=== PATIENT | female | born 1950 | race Caucasian/White ===

== ENCOUNTER 2019-10-05 04:41 | Emergency (ER) | payer MEDICARE, MEDICAID, SELFPAY ==
[2019-10-05 05:11] VITALS: BP 136/74; PULSE 77; RESP 16; O2SAT 96; BMI 34.7
--- NOTE | 2019-10-05 05:26 | CTR_ITS ---
PROCEDURE INFORMATION: Exam: CT Head Without Contrast Exam date and time: 10/05/2019 5:27 AM Age: 68 years old Clinical indication: Injury or trauma; Fall; Initial encounter; Blunt trauma (contusions or hematomas); Without loss of consciousness; Additional info: Fall/injury/headache TECHNIQUE: Imaging protocol: Computed tomography of the head without contrast. Radiation optimization: All CT scans at this facility use at least one of these dose optimization techniques: automated exposure control; mA and/or kV adjustment per patient size (includes targeted exams where dose is matched to clinical indication); or iterative reconstruction. COMPARISON: No relevant prior studies available. RADIATION DOSE METRICS: Total DLP (mGy-cm): 853.02 FINDINGS: Brain: There are no areas of abnormally increased or decreased brain parenchymal attenuation. No abnormal intra-axial or extra-axial fluid collections are identified. There is no midline shift. No intracranial hemorrhage identified. Ventricles: The ventricular system is within normal limits for size and configuration. Bones/joints: Unremarkable as visualized. Sinuses: Visualized sinuses are unremarkable. No fluid levels. Mastoid air cells: Visualized mastoid air cells are well aerated. Soft tissues: Unremarkable. CT/CT head wo con* [id number] IMPRESSION: 1. No acute intracranial abnormality identified. Radiation Dose CTDIVOL = (mGy): DLP = 853.02 (mGy-cm)
[2019-10-05 05:36] VITALS: BP 138/86; PULSE 76; RESP 16; O2SAT 95
[2019-10-05] MEDS: ondansetron 4 MG Tablet PO (05:37)
[2019-10-05] MEDS: acetaminophen 500 mg Tablet 1000 MG PO (05:38)
--- NOTE | 2019-10-05 05:48 | ED_ITS ---
Documented by User: Stacey Eden 10/05/19 05:53 HPI - Head Injury General: Chief complaint: Head Injury Stated complaint: fall/hit head Time Seen by Provider: 10/05/19 05:20 Source: patient Mode of arrival: ambulatory Limitations: no limitations History of Present Illness: HPI Narrative: Ms. Hopper is a nice 68-year-old female who comes in with a complaint of hitting her head after rolling out of bed. She was dazed but not knocked unconscious. She felt herself fall as she woke up and rolled over and realize she fell off the bed. She denies any pain to her neck, chest or other areas of her body. She is been nauseated since then and has a headache. Associated symptoms: Reports nausea; Deny confusion, neck pain, syncope, vertigo or vomiting Review of Systems Const: Denies: fever(s), chills, body aches, fatigue, malaise or diaphoresis Eyes: Denies: change in vision, blurry vision, blind spots, photophobia, eye discharge or eye redness ENMT: Denies: throat pain, odynophagia, hoarseness, swelling of lips/tongue, oral sores, ear or mastoid pain, ear discharge, change in hearing or nasal discharge Card: Denies: chest pain, palpitations, irregular heart rhythm, edema, lightheadedness, syncope, pre-syncope, dyspnea on exertion or orthopnea Resp: Denies: dyspnea, productive cough, non-productive cough, wheezing, hemoptysis or chest congestion GI: Reports: nausea; Denies: abdominal pain, vomiting, hematemesis, coffee ground emesis, heartburn, diarrhea, constipation, GI cramping, hematochezia or melena : Denies: flank pain, dysuria, urinary frequency, urinary urgency or hematuria Musc: Denies: neck pain, back pain, extremity pain, extremity swelling, joint pain, joint swelling, joint redness, joint warmth or joint stiffness Skin/Breast: Denies: rash, pruritus, erythema, skin tenderness or jaundice Neuro: Reports: headache(s); Denies: numbness in extremities, weakness in extremities, sensory changes, lack of coordination, difficulty walking, dizziness, vertigo, confusion, Slurred speech present or seizure-like activity Talib/Lymph: Denies: easy bruising, easy bleeding, petechiae, purpura or enlarged lymph nodes All/Imm: Denies: urticaria, throat swelling, tongue swelling, facial swelling or acute wheezing PFSH ED PFSH: Medical History (Updated 10/05/19 @ 06:54 by Champ Hansen DO) Obstructive sleep apnea Physical Exam 2 Const: COMMON NORMALS: no acute distress, patient oriented x3, no limitations, healthy appearing and well nourished GENERAL APPEARANCE: cooperative, well kempt and well developed HENMT: COMMON NORMALS: normocephalic, atraumatic, external ears normal, EAC's normal and Normal external nose present HEAD & SCALP: normal to inspection, normocephalic and atraumatic FACE & SINUS: normal facial exam and face symmetric NOSE: Normal external nose present and Normal nares present EXTERNAL EAR: Yes external ears normal EXTERNAL AUDITORY CANAL: EAC's normal MOUTH: Normal oral and palatal mucosa present, lip normal and tongue normal Eye: COMMON NORMALS: Equal, round and reactive pupils present and conjunctivae normal GENERAL EYE: appearance normal, both eyes and all related structures ALIGNMENT: Yes alignment normal PERIORBITAL: periorbital findings normal EYELID: eyelids normal CONJUNCTIVA: Yes conjunctivae normal SCLERA: sclerae normal PUPIL: Yes Equal, round and reactive pupils present Neck/C-Spine: COMMON NORMALS: full ROM, no lymphadenopathy, supple, no meningeal signs and no JVD GENERAL: Yes normal visual inspection and Yes trachea midline Chest: COMMONS NORMALS: normal inspection of the chest and normal palpation of entire chest wall Resp: COMMON NORMALS: normal respiratory effort, No retractions and No use of accessory muscles EFFORT & INSPECTION: Yes able to speak in complete sentences and Yes symmetric chest movement AUSCULTATION: no crackles, no rales, no rhonchi and no wheezes Cardio: COMMON NORMALS: no JVD, regular rate, regular rhythm, S1 normal heart sound present and S2 normal heart sound present RATE: regular rate RHYTHM: regular rhythm HEART SOUNDS: S1 normal heart sound present, S2 normal heart sound present, no click, no gallops, no murmurs, no rubs and abnormal split S2 GI: COMMON NORMALS: Soft to palpation and No hepatosplenomegaly present PALPATION: Yes Soft to palpation, No Tenderness to palpation present (GI), No Guarding due to palpation present (GI), No Rigid due to palpation, Yes No hepatosplenomegaly present, No Hernia present, No Palpable mass present and No Pulsatile mass present : COMMON NORMALS: Yes no CVA tenderness BLADDER/KIDNEY EXAM: Yes no CVA tenderness EXTERNAL FEMALE EXAM: No Hernia present Back/Pelvis: COMMON NORMALS: no CVA tenderness, thoracic and lumbar spine normal to inspection, no thoracic nor lumbar tenderness and thoraco-lumbar ROM normal Extremity: COMMON NORMALS: normal to inspection, full ROM, capillary refill normal, no joint enlargement, no clubbing, cyanosis or edema and no calf tenderness Neuro: COMMON NORMALS: patient oriented x3, CN's II-XII intact bilaterally, moves all extremities, no focal motor deficits and no sensory deficits noted MENINGEAL SIGNS: Yes no meningeal signs SPEECH: speech normal Psych: COMMON NORMALS: mental status grossly normal, Normal thought process present, cooperative, normal affect, speech normal and activity/motor behavior normal APPEARANCE: Yes well kempt SPEECH: Yes normal speech THOUGHT PROCESS: Normal thought process present Skin: COMMON NORMALS: no rashes or lesions noted, turgor normal, no jaundice, no petechiae and no mottling GENERAL SKIN EXAM: no rashes or lesions noted and turgor normal Course Vital Signs: Vital signs: Vital Signs Pulse Rate 70 10/05/19 06:34 Respiratory Rate 16 10/05/19 06:34 Blood Pressure 133/61 10/05/19 06:34 Pulse Oximetry 94 10/05/19 06:34 Discharge Plan Discharge Patient Disposition: Home, Self-Care Clinical Impression: Closed head injury Qualifiers: Encounter type: initial encounter Qualified Code(s): S09.90XA - Unspecified injury of head, initial encounter Condition: Stable Discharge Orders: Discharge Order (Routine); Ordered 10/05/19 Ordered By: Champ Hansen Sign Out Sign Out Data: Patient Sign Out occurred on 10/05/19 at 06:52. Patient's care was discussed, and care was transferred from to Champ Hansen. Coding Level of Care Code ED Dumbwaiter Operator for Chg Fwd Exam Comprehensive Documented by User: Champ Hansen DO 10/05/19 06:54 HPI - Head Injury General: Chief complaint: Head Injury Stated complaint: fall/hit head Time Seen by Provider: 10/05/19 05:20 PFS ED PFSH: Medical History (Updated 10/05/19 @ 06:54 by Champ Hansen DO) Obstructive sleep apnea Course Vital Signs: Vital signs: Vital Signs Pulse Rate 70 10/05/19 06:34 Respiratory Rate 16 10/05/19 06:34 Blood Pressure 133/61 10/05/19 06:34 Pulse Oximetry 94 10/05/19 06:34 MDM - Head Injury Imaging Data^: CT Head: Radiologist's impression: No acute intracranial injury or abnormality Discharge Plan Discharge Patient Disposition: Home, Self-Care Clinical Impression: Closed head injury Qualifiers: Encounter type: initial encounter Qualified Code(s): S09.90XA - Unspecified injury of head, initial encounter Condition: Stable Discharge Orders: Discharge Order (Routine); Ordered 10/05/19 Ordered By: Champ Hansen Sign Out Sign Out Data: Patient Sign Out occurred on 10/05/19 at 06:52. Patient's care was discussed, and care was transferred from to Champ Hansen. Coding Level of Care Code ED Dumbwaiter Operator for Montseg Fwd Exam Comprehensive
[2019-10-05 06:34] VITALS: BP 133/61; PULSE 70; RESP 16; O2SAT 94
[2019-10-05 07:08] VITALS: BP 145/64; PULSE 71; RESP 16; O2SAT 94
== END 2019-10-05 07:08 | disposition home or self-care (01) ==
PROVIDERS: Emergency Provider Family Medicine
DX: S09.8XXA Other specified injuries of head, initial encounter (principal); W06.XXXA Fall from bed, initial encounter; G47.33 Obstructive sleep apnea (adult) (pediatric)
CPT/HCPCS: 12345; 70450; 99281; 99283; Q0162

== ENCOUNTER 2019-11-09 04:23 | Emergency (ER) | payer MEDICARE, MEDICAID, SELFPAY ==
[2019-11-09 04:28] VITALS: BP 179/87; PULSE 86; RESP 16; TEMP 36.3; O2SAT 97; BMI 33.5
--- NOTE | 2019-11-09 04:30 | CTR_ITS ---
PROCEDURE INFORMATION: Exam: CT Head Without Contrast Exam date and time: 11/09/2019 4:44 AM Age: 69 years old Clinical indication: Injury or trauma; Fall; Initial encounter; Blunt trauma (contusions or hematomas) and laceration; Without loss of consciousness; Without residual foreign body; Injury details: PT fell out of bed hitting lt ear on nightstand. ; Additional info: Head injury TECHNIQUE: Imaging protocol: Computed tomography of the head without contrast. Radiation optimization: All CT scans at this facility use at least one of these dose optimization techniques: automated exposure control; mA and/or kV adjustment per patient size (includes targeted exams where dose is matched to clinical indication); or iterative reconstruction. COMPARISON: CT head wo con* [id number] 10/05/2019 5:58 AM RADIATION DOSE METRICS: Total DLP (mGy-cm): 856.99 FINDINGS: Brain: No acute intracranial hemorrhage or mass effect. No definite acute infarct by CT. Ventricles: Ventricle size is normal for age. Bones/joints: No definite acute skull fracture. Sinuses: Included paranasal sinuses are essentially clear. Mastoid air cells: No significant acute finding. CT/CT head wo con* [id number] IMPRESSION: 1. No acute intracranial hemorrhage or mass effect. 2. Other findings discussed above. Radiation Dose CTDIVOL = (mGy): DLP = 856.99 (mGy-cm)
--- NOTE | 2019-11-09 04:34 | W.ED.FALL ---
HPI - Fall General: Chief Complaint: Fall Stated Complaint: fell out of bed Time Seen by Provider: 11/09/19 04:26 Source: patient Mode of arrival: ambulatory Limitations: no limitations History of Present Illness: HPI Narrative: 69-year-old female who states she got out of bed and fell just prior to arrival. She struck her head on a nightstand and has a laceration to her left ear. She denies any loss consciousness. Does have pain at her ear and head. Denies any other injuries. Denies any neck pain. MD complaint: fall Associated symptoms-after fall: Reports headache(s); Denies abdominal pain, chest pain or neck pain Review of Systems Const: Denies: fever(s), chills, body aches or change in appetite Eyes: Denies: blurry vision or eye discomfort ENMT: Denies: throat pain or dental pain Card: Denies: chest pain Resp: Denies: dyspnea GI: Denies: abdominal pain, nausea, vomiting or diarrhea : Denies: dysuria Musc: Denies: neck pain or back pain Skin/Breast: Denies: rash Neuro: Reports: headache(s) Psych: Denies: depression Talib/Lymph: Denies: easy bruising All/Imm: Denies: urticaria PFSH ED PFSH: Medical History (Updated 11/09/19 @ 04:40 by Cinda Rachel MD) Obstructive sleep apnea Social History (Updated 11/09/19 @ 04:33 by Roberto Bragg RN) Smoking and tobacco status: current every day smoker cigarettes Packs smoked per day: 1.5 Number of cigarettes per day: >20 Physical Exam Const: COMMON NORMALS: no acute distress, patient oriented x3 and healthy appearing HENMT: COMMON NORMALS: normocephalic HEAD & SCALP: normocephalic OTHER: 1 cm laceration to pinna of left upper ear Eye: COMMON NORMALS: Equal, round and reactive pupils present and EOMs intact bilaterally PUPIL: Yes Equal, round and reactive pupils present Neck/C-Spine: COMMON NORMALS: full ROM and supple Chest: COMMONS NORMALS: normal inspection of the chest and normal palpation of entire chest wall Resp: COMMON NORMALS: normal respiratory effort, No retractions, No use of accessory muscles and clear to auscultation bilaterally AUSCULTATION: clear to auscultation bilaterally Cardio: COMMON NORMALS: regular rate, regular rhythm and No murmurs present (Cardio) RATE: regular rate RHYTHM: regular rhythm GI: COMMON NORMALS: Normal to inspection, nondistended, normoactive bowel sounds present, Soft to palpation, non-tender and no masses PALPATION: Yes Soft to palpation Extremity: COMMON NORMALS: normal to inspection and full ROM Neuro: COMMON NORMALS: patient oriented x3, moves all extremities and no focal motor deficits Psych: COMMON NORMALS: mental status grossly normal, Normal thought process present and cooperative THOUGHT PROCESS: Normal thought process present Skin: COMMON NORMALS: no rashes or lesions noted and no wounds GENERAL SKIN EXAM: no rashes or lesions noted Procedures Laceration Laceration 1: Site: other (ear) Side (If applicable): left Size (cm): 1.5 Description: linear Depth: simple, single layer Local Anesthetic: lidocaine 1% Amount of anesthesia used (mL): 5 Pre-repair: wound explored and irrigated extensively Skin layer closed with: nylon Size (cm): 5-0 Number of sutures: 3 Technique: simple, interrupted Technique: other (1 5-0 absorbably suture used to suture cartilage) Course Vital Signs: Vital signs: Vital Signs Temperature 97.4 F L 11/09/19 04:28 Pulse Rate 72 11/09/19 04:37 Respiratory Rate 15 11/09/19 04:37 Blood Pressure 172/80 11/09/19 04:37 Pulse Oximetry 97 11/09/19 04:37 MDM - Fall MDM Narrative: Medical decision making narrative: Patient presents here with a laceration to left ear. This was repaired and patient is to return in 10 days for suture removal. Head CT here is normal. Patient is stable for discharge and return if worsening. Imaging Data^: CT Head: Radiologist's impression: head injury [facility] [address] [place] [address] CT Scan Report Signed Patient: Kala Hopper Unit #: [id number] : 1950 Age/Sex: 69 / F ADM Date: 11/09/19 Loc: ER Room/Bed: Attending Dr: Ordering Provider/Ordering MD: Cinda Rachel MD Date of Service: 11/09/19 Procedure(s): CT head wo con* [id number] Accession Number(s): [id number] Report Number: [id number] PROCEDURE INFORMATION: Exam: CT Head Without Contrast Exam date and time: 11/09/2019 4:44 AM Age: 69 years old Clinical indication: Injury or trauma; Fall; Initial encounter; Blunt trauma (contusions or hematomas) and laceration; Without loss of consciousness; Without residual foreign body; Injury details: PT fell out of bed hitting lt ear on nightstand. ; Additional info: Head injury TECHNIQUE: Imaging protocol: Computed tomography of the head without contrast. Radiation optimization: All CT scans at this facility use at least one of these dose optimization techniques: automated exposure control; mA and/or kV adjustment per patient size (includes targeted exams where dose is matched to clinical indication); or iterative reconstruction. COMPARISON: CT head wo con* [id number] 10/05/2019 5:58 AM RADIATION DOSE METRICS: Total DLP (mGy-cm): 856.99 FINDINGS: Brain: No acute intracranial hemorrhage or mass effect. No definite acute infarct by CT. Ventricles: Ventricle size is normal for age. Bones/joints: No definite acute skull fracture. Sinuses: Included paranasal sinuses are essentially clear. Mastoid air cells: No significant acute finding. CT/CT head wo con* [id number] IMPRESSION: 1. No acute intracranial hemorrhage or mass effect. 2. Other findings discussed above. Discharge Plan Discharge Patient Disposition: Home Clinical Impression: Laceration of ear Qualifiers: Encounter type: initial encounter Laterality: left Qualified Code(s): S01.312A - Laceration without foreign body of left ear, initial encounter Head injury Qualifiers: Encounter type: initial encounter Qualified Code(s): S09.90XA - Unspecified injury of head, initial encounter Condition: Stable Discharge Orders: Discharge Order (Routine); Ordered 11/09/19 Ordered By: Cinda Rachel Discharge Diet: Advance as tolerated Discharge Activity: Resume usual activity Patient Instructions: Laceration (ED), Minor Head Injury (ED) Activity Restrictions/Additional Instructions: return in 10 days for suture removal Coding Level of Care Code ED Grader Meat for Chg Fwd Exam Comprehensive
[2019-11-09 04:37] VITALS: BP 172/80; PULSE 72; RESP 15; O2SAT 97
--- NOTE | 2019-11-09 04:41 | PC.NURSE ---
patient to CT
[2019-11-09] MEDS: lidocaine 1% INJ 20 mL INJECTION (05:09)
[2019-11-09 05:19] VITALS: BP 154/73; PULSE 72; RESP 15; O2SAT 96
[2019-11-09] MEDS: ondansetron 2 mg/ML SDV 2 mL 4 MG IM (05:25)
[2019-11-09 05:27] VITALS: BP 151/85; PULSE 70; RESP 16; O2SAT 94
== END 2019-11-09 05:29 | disposition home or self-care (01) ==
PROVIDERS: Emergency Provider Emergency Medicine
DX: S01.312A Laceration without foreign body of left ear, initial encounter (principal); W06.XXXA Fall from bed, initial encounter; F17.210 Nicotine dependence, cigarettes, uncomplicated
CPT/HCPCS: 12011; 12345; 70450; 96372; 99281; 99283; J2405